=== PATIENT | female | born 1930 | race Caucasian/White ===

== ENCOUNTER → 2019-01-31 | Outpatient (CLI) | payer OTHER | LOC: M.RAD 12:20 | DX: R92.2 Inconclusive mammogram (principal); Z90.11 Acquired absence of right breast and nipple; Z85.3 Personal history of malignant neoplasm of breast ==

== ENCOUNTER → 2019-02-02 | Outpatient (CLI) | payer OTHER | LOC: M.ULTRA 09:47 → M.RAD 10:40 → M.ULTRA 11:00 | DX: N63.23 Unspecified lump in the left breast, lower outer quadrant (principal) ==